=== PATIENT | female | born 1980 | race Caucasian/White ===

== ENCOUNTER 2018-11-23 15:17 | Emergency (ER) | payer MEDICAID ==
[2018-11-23 15:35] VITALS: BP 174/98
--- NOTE | 2018-11-23 15:47 | EDPHY ---
H & P Stated Complaint: back pain Time Seen by Provider: 11/23/18 15:39 HPI/ROS: CHIEF COMPLAINT: Lumbar pain HISTORY OF PRESENT ILLNESS: The patient is a 38-year-old homeless female comes to the emergency department requesting narcotics. She states that she has had chronic back pain for several years and has been referred to a family centered specialist in [place] but does not remember the name and has not yet seen them. She tells me that she ran out of her Vicodin yesterday and that there is nothing else that controlled her pain. She complains of right lower lumbar pain. No midline pain or tenderness. Her pain is not worse than normal. She denies weakness numbness or paresthesias. She denies bowel or bladder abnormalities. She denies headache neck pain or upper back pain. She denies dysuria, frequency or fevers. No nausea vomiting. Severity: Severe Modifying factors: Improved by Vicodin REVIEW OF SYSTEMS: Constitutional: denies: chills, fever, recent illness, recent injury EENTM: denies: blurred vision, double vision, nose congestion Respiratory: denies: cough, shortness of breath Cardiac: denies: chest pain, irregular heart rate, lightheadedness, palpitations Gastrointestinal/Abdominal: denies: abdominal pain, diarrhea, nausea, vomiting, blood streaked stools Genitourinary: denies: dysuria, frequency, hematuria, pain Musculoskeletal: denies: joint pain, muscle pain Skin: denies: lesions, rash, jaundice, bruising Neurological: denies: headache, numbness, paresthesia, tingling, dizziness, weakness Hematologic/Lymphatic: denies: blood clots, easy bleeding, easy bruising Immunologic/allergic: denies: HIV/AIDS, transplant 10 systems reviewed and negative except as noted EXAM: GENERAL: Well-appearing, well-nourished and in no acute distress. HEAD: Atraumatic, normocephalic. EYES: Pupils equal round and reactive to light, extraocular movements intact, sclera anicteric, conjunctiva are normal. ENT: TMs normal, nares patent, oropharynx clear without exudates. Moist mucous membranes. NECK: Normal range of motion, supple without lymphadenopathy or JVD. LUNGS: Breath sounds clear to auscultation bilaterally and equal. No wheezes rales or rhonchi. HEART: Regular rate and rhythm without murmurs, rubs or gallops. ABDOMEN: Soft, nontender, normoactive bowel sounds. No guarding, no rebound. No masses appreciated. BACK: No CVA tenderness, no spinal tenderness, step-offs or deformities EXTREMITIES: Normal range of motion, no pitting or edema. No clubbing or cyanosis. I had the patient ambulate at the bedside. I had her balance on 1 ft at a time. I had her walk on her Tippy toes without any difficulty. NEUROLOGICAL: Cranial nerves II through XII grossly intact. Normal speech, normal gait. 5/5 strength, normal movement in all extremities, normal sensation , normal reflexes PSYCH: Normal mood, normal affect. SKIN: Warm, dry, normal turgor, no visible rashes or lesions. Source: Patient Exam Limitations: No limitations - Personal History Current Tetanus/Diphtheria Vaccine: Yes Current Tetanus Diphtheria and Acellular Pertussis (TDAP): Yes - Medical/Surgical History Hx Asthma: No Hx Chronic Respiratory Disease: No Hx Diabetes: No Hx Cardiac Disease: No Hx Renal Disease: No Hx Cirrhosis: No Hx Alcoholism: Yes Hx HIV/AIDS: No Hx Splenectomy or Spleen Trauma: No Other PMH: spinal sclerosis, Hep C, HTN, hysterectomy, - Family History Significant Family History: No pertinent family hx - Social History Smoking Status: Current every day smoker Alcohol Use: None Constitutional: Initial Vital Signs Temperature (C) 36.5 C 11/23/18 15:31 Heart Rate 91 11/23/18 15:31 Respiratory Rate 16 11/23/18 15:31 Blood Pressure 174/98 H 11/23/18 15:31 O2 Sat (%) 99 11/23/18 15:31 O2 Delivery Mode Room Air Allergies/Adverse Reactions: lisinopril Allergy (Verified 11/23/18 15:31) Home Medications: Medication Instructions Recorded Ibuprofen 11/23/18 Vicodin 5-300 mg Tablet 11/23/18 Medical Decision Making ED Course/Re-evaluation: The patient appears to have muscular low back pain. No radiation of the pain. No neurologic deficits. She is asking for Vicodin and states that she ran out of her yesterday. She states that she is here and [place] because she is trying to work here but cannot go to work because her back pain it hurts too much. We discussed nonnarcotic options and she became very angry and stood up on the bed and got a my face and called me an "ass hole". At this point I asked for security to escort her from the department. Differential Diagnosis: Partial list of the Differential diagnosis considered include but were not limited to; malingering, muscle strain, opiate abuse and although unlikely based on the history and physical exam, I also considered infection, spinal cord compression, radiculopathy, urinary tract infection, kidney stone. I discussed these differential diagnoses and the plan with the patient as well as the usual and expected course. The patient understands that the diagnosis is provisional and that in medicine we are not always correct and that further workup is often warranted. Usual and customary warnings were given. All of the patient's questions were answered. The patient was instructed to return to the emergency department should the symptoms at all worsen or return, otherwise to followup with the physician as we discussed. Departure - Departure Disposition: Home, Routine, Self-Care Clinical Impression: Lumbar pain, Malingering, Drug-seeking behavior Condition: Fair Instructions: Low Back Strain (ED), Opioid Use Disorder (ED) Referrals: Mich Merida, VENITA [Physician Network Administrator] - As per Instructions
== END 2018-11-23 15:58 | disposition home or self-care (01) ==
DX: M54.5 Low back pain (principal); Z76.5 Malingerer [conscious simulation]; Z59.0 Homelessness; B19.20 Unspecified viral hepatitis C without hepatic coma; I10 Essential (primary) hypertension; F17.210 Nicotine dependence, cigarettes, uncomplicated